=== PATIENT | female | born 1995 | race Caucasian/White ===

== ENCOUNTER → 2017-03-06 | Day surgery (SDC) | payer OTHER ==
[2017-03-01 08:21] VITALS: Ht 165.1 cm; Wt 75.0 kg
[~2017-03-06] VITALS: Ht 165.1 cm; Wt 75.0 kg
[~2017-03-06] MED LIST: ACETAMINOPHEN 325 MG TAB PO PRN; BCPILLS PO; BUPIVACAINE 0.25% 2.5MG/ML PF 10 ML VIAL ONE; CEFAZOLIN 2000 MG/60 ML D5W IV SCH; LACTATED RINGER'S 1000ML 1,000 ML IV SCH; LIDOCAINE/EPINEPHRINE 1% 20 ML VIAL INJ ONE; LIDOCAINE/EPINEPHRINE 1% INJ 50 ML VIAL ONE; METOCLOPRAMIDE HCL INJ 5 MG/ML 2 ML VIAL IV PRN; ONDANSETRON INJ 2 MG/ML 2 ML VIAL IV PRN; OXYCODONE/ACETAMINOPHEN 5-325 TAB PO PRN; POVIDONE-IODINE OP SOLN 30 ML BTL ONE; SODIUM CHLORIDE 0.9% 1000ML 1,000 ML IV SCH; TRIAMCINOLONE ACET 40 MG/ML VIAL ONE
--- NOTE | 2017-03-06 11:28 | History & Physical Bridge - [place] ---
H&P Re-Evaluation Bridge Note: I have examined the patient, reviewed the History & Physical and in the interval since the performance of the History & Physical I have noted the following changes of clinical significance: No changes noted
--- NOTE | 2017-03-06 12:48 | Discharge Instructions ---
Discharge Instructions Date of Service Mar 06, 2017. Admission Reason for Admission: Right Ear [place] Keloids Discharge Discharge Diagnosis / Problem: right ear keloid Discharge Goals Goal(s): Decrease discomfort Activity Recommendations Activity Limitations: per Instructions/Follow-up section ACTIVITY RECOMMENDATIONS: __Normal activities _x_No bending, lifting or straining __No driving _x_Driving allowed when you are off pain medications _x_Walking permitted __You should have help at home for ___ days DRESSINGS: __No dressings required _x_Keep dressings dry/in place until first office visit __Remove dressings ___ and leave dressings off __Apply ice ___ days __Remove dressings and reapply garment __Apply antibiotic ointment (Bacitracin, Neosporin, etc) to wounds 3-4 times/ day for 10 days BATHING: _x_Keep dressings dry _x_Sponge bathing permitted- but not washing hair __Showering permitted _x_No swimming, hot tubs or soaking in a tub MEDICATIONS: Resume previous medications unless instructed otherwise by your surgeon. _x_Do not use aspirin, Motrin, Advil or Ibuprofen as these may promote bleeding. Please use Tylenol. _x_Prescription(s) provided: pain medication was provided at your last office visit OTHER INSTRUCTIONS: __Record drain output 2-3 times per day SPECIAL CARE INSTRUCTIONS: * It is normal to have a mild fever after surgery. If your temperature is higher than 101.5 degrees F, please call the office at [phone]. * Constipation is a typical side effect of pain medication. An over-the- counter stool softener will help relieve this. * Leaking around surgical drains may occur and should not cause concern. Sometimes these drains become clogged. If this happens, remove the bulb and milk the clot out of the tube, then replace the bulb. * Drainage from wounds after liposuction is normal and should be expected. Garments will become soiled. You should protect furniture and bedding. This drainage should mostly subside within 2-3 days. Leave garments in place unless instructed to remove them. * If you have unusual drainage from a wound or are concerned you have an infection or have any questions or concerns, please call the office at [phone]. FOLLOW UP VISIT: If not already scheduled, please call the office, , when you return home after surgery to schedule an appointment to be seen in _2__ days. . Current Hospital Diet Patient's current hospital diet: Discharge Diet Recommended Diet: Regular Diet Procedures Procedures Performed: Right Ear Antihelix Excision Of Keloid Scars Antihelix Pending Studies Studies pending at discharge: yes List of pending studies: pathology Medical Emergencies . Who to Call and When: Medical Emergencies: If at any time you feel your situation is an emergency, please call 911 immediately. . Non-Emergent Contact Non-Emergency issues call your: Primary Care Provider, Surgeon . "Provider Documentation" section prepared by Andra Ledesma. . VTE Core Measure Inpt VTE Proph given/why not?: SCD's [place] Drug Monitoring Program Search Results: no issues identified
--- NOTE | 2017-03-06 12:50 | [facility] Post Operative Brief Note ---
Immediate Operative Summary Operative Date Mar 06, 2017. Pre-Operative Diagnosis Keloid scar right ear Post-Operative Diagnosis same as pre-op Procedure(s) Performed Right Ear Antihelix Excision Of Keloid Scars Antihelix Surgeon Infertility Nurse Surgeon(s) Andra NOLAN Estimated Blood Loss 1ML Findings keloid right anterior and posterior antihelix Specimens A.Keloid right ear anterior antihelix Anesthesia local Complication(s) None Disposition Recovery Room / PACU
[2017-03-06 13:13] VITALS: BP 112/77; TEMP 36.6; O2SAT 96
--- NOTE | 2017-03-06 16:43 | [facility] Operative Report ---
Operative Report Operative Date Mar 06, 2017. Pre-Operative Diagnosis Keloid scar right ear Post-Operative Diagnosis same as pre-op Procedure(s) Performed Right Ear Antihelix Excision Of Keloid Scars Antihelix Surgeon Clinical Pathologist Surgeon(s) Andra NOLAN Estimated Blood Loss 1ML Findings Keloid right antihelix Specimens A.Keloid right ear anterior antihelix Anesthesia local Complication(s) None Disposition Recovery Room / PACU Indications Patient is 21 year old female who presented to my office with keloid scar of her right anti helix from ear piercing. Description of Procedure Risks, benefits and alternatives of procedure explained to the patient agreed to sign consent. We discussed whether to perform the procedure under local anesthesia or with sedation. We also discussed possible need for placement of a full-thickness skin graft. Patient was identified and marked in the preoperative holding area and brought to the operating room where she was positioned supine. Surgical site was prepped and draped sterilely. Time-out procedure was performed. Planned excision was marked both anteriorly and posteriorly as there was a small keloid anteriorly and a much larger keloid posteriorly the anti helical piercing. Note, patient had several other ear piercings and body piercings, none of which formed keloid scars. 1 percent lidocaine with epinephrine was used to anesthetize the excisions. I began with the anterior excision. A 15 blade scalpel used to circumscribe the lesion. There did not appear to be a firm nodularity penetrating the cartilage. Similar excision was undertaken on the posterior aspect of the ear. Left a small border of keloid scar posteriorly in order to facilitate closure. It did not appear that the keloid penetrated through the cartilage and therefore I elected to proceed with injection Kenalog 40 diluted 1-4 with 1 percent lidocaine with epinephrine into the wound periphery and wound base both anteriorly and posteriorly Rather than attempt to resect underlying cartilage and further complicate reconstruction. Anterior skin was closed using 5 0 nylon interrupted sutures, posterior skin was closed using 5 interrupted nylon sutures. Bolster dressing was created using Xeroform both anteriorly and posteriorly, which was sutured in place using 4-0 nylon U sutures through the ear itself. Total closure length 2 cm. Dressings and a [place] dressing was placed. Procedures tolerated well. Patient was transferred to recovery in satisfactory condition. I attest to the content of the Intraoperative Record and any orders documented therein. Any exceptions are noted below.
== END | disposition home or self-care (01) ==
LOC: X.SURG 09:29
PROVIDERS: ATTEND Plastic Surgery
DX: L91.0 Hypertrophic scar (principal); E28.2 Polycystic ovarian syndrome; Z82.49 Family history of ischemic heart disease and other diseases of the circulatory system; Z83.1 Family history of other infectious and parasitic diseases; Z80.43 Family history of malignant neoplasm of testis